=== PATIENT | female | born 1950 | race African-American/Black ===

== ENCOUNTER 2018-09-26 08:54 | Inpatient (IN) | payer MEDICARE ==
[~2018-09-26] VITALS: Ht 162.6 cm; Wt 66.7 kg
[2018-09-26 09:45] LABS: CLARITY URINE CLEAR (CLEAR); COLOR URINE YELLOW (YELLOW); KETONES URINE NEGATIVE (NEGATIVE); LEUKOCYTE ESTERASE URINE TRACE (NEGATIVE); NITRITE URINE NEGATIVE (NEGATIVE); OCCULT BLOOD URINE TRACE (NEGATIVE); PROTEIN URINE 2+ (NEGATIVE); SPECIFIC GRAVITY URINE 1.013 (1.005-1.030); UROBILINOGEN URINE 0.2 E.U./dL (0.2-1.0)
[2018-09-26 10:27] LABS: BASOPHILS % 0.8 % (0.0-2.0); EOSINOPHILS % 4.1 % (0.0-5.0); HEMATOCRIT. 36.8 % (36.0-48.0); HEMOGLOBIN. 12.8 g/dL (12.0-16.0); LYMPHOCYTES % 25.8 % (20.0-50.0); MEAN CORPUSCULAR HEMOGLOBIN 31.7 pg (28.0-32.0); MEAN CORPUSCULAR VOLUME 91.3 fL (81.0-99.0); MEAN PLATELET VOLUME 8.5 fl (7.4-10.4); MONOCYTES % 7.2 % (2.0-8.0); NEUTROPHILS % 62.1 % (40.0-76.0); PLATELET 269 x1000/uL (130-400); RED BLOOD CELL COUNT 4.03 mill/uL (4.2-5.4); RED CELL DISTRIBUTION WIDTH 13.7 % (11.6-14.6)
[2018-09-26 10:28] LABS: CHLORIDE 106 mEq/L (98-107)
[2018-09-26 10:32] LABS: INR 0.9; PROTHROMBIN TIME 9.5 sec (9.1-11.1)
[2018-09-26] MEDS ORDERED: MORPHINE SULFATE 4 MG/ML CPJ (NOT FOR IM USE) IV STA (11:45)
[2018-09-26] MEDS ORDERED: ONDANSETRON HCL 4MG/2ML INJ IV STA (11:45)
[2018-09-26] MEDS ORDERED: CEFTRIAXONE 1 G PREMIX 50 ML IV ONE (13:30)
[2018-09-26] MEDS ORDERED: DOCUSATE SODIUM 100MG CAPSULE PO PRN (16:30)
[2018-09-26] MEDS ORDERED: NA PHOS,M-B/NA PHOS,DI-BA ENEMA 118ML PR PRN (16:30)
[2018-09-26] MEDS ORDERED: HYDROCODONE/ACETAMINOPHEN 10/325MG TABLET PO PRN (16:30)
[2018-09-26] MEDS ORDERED: GUAIFENESIN 200MG/10ML SUGAR FREE UDC PO PRN (16:30)
[2018-09-26] MEDS ORDERED: DIPHENHYDRAMINE 50MG/ML VIAL IV PRN (16:30)
[2018-09-26] MEDS ORDERED: ACETAMINOPHEN 325MG TABLET PO PRN (16:30)
[2018-09-26] MEDS ORDERED: ACETAMINOPHEN 650MG/20.3ML UDC GT PRN (16:30)
[2018-09-26] MEDS ORDERED: IPRATROPIUM/ALBUTEROL 0.5-3(2.5)MG/3ML NEB INH PRN (16:30)
[2018-09-26] MEDS ORDERED: MAGNESIUM/ALUMINUM HYDROXIDE/SIMETHICONE 30ML UDC PO PRN (16:30)
[2018-09-26] MEDS ORDERED: ACETAMINOPHEN 650MG SUPP PR PRN (16:30)
[2018-09-26] MEDS: HYDROCODONE/ACETAMINOPHEN 5/325MG TABLET PO PRN (17:55)
[2018-09-26] MEDS ORDERED: DEXTROSE 50% WATER 50ML SYRINGE IV PRN (18:15)
[2018-09-26 20:30] VITALS: BP 165/62
[2018-09-26] MEDS: INSULIN LISPRO 100 UNITS/ML SUBCUT SCH (21:00)
[2018-09-26] MEDS: BLOOD SUGAR DIAGNOSTIC STRIP TEST SCH (21:15)
[2018-09-26] MEDS ORDERED: METF-414 MT (21:53)
[2018-09-26] MEDS ORDERED: LISI-604 MT (21:53)
[2018-09-26] MEDS ORDERED: ALBU6.7H9 INH (21:53)
[2018-09-26] MEDS: CLONIDINE 0.1MG TABLET PO PRN (22:08)
[2018-09-26] MEDS: SODIUM CHLORIDE 0.9% INJ 3ML FLUSH IVF SCH (22:11)
[2018-09-26 23:09] LABS: CLARITY URINE CLEAR (CLEAR); COLOR URINE YELLOW (YELLOW); KETONES URINE NEGATIVE (NEGATIVE); LEUKOCYTE ESTERASE URINE NEGATIVE (NEGATIVE); NITRITE URINE NEGATIVE (NEGATIVE); OCCULT BLOOD URINE NEGATIVE (NEGATIVE); PROTEIN URINE 2+ (NEGATIVE); SPECIFIC GRAVITY URINE 1.013 (1.005-1.030); UROBILINOGEN URINE 0.2 E.U./dL (0.2-1.0)
[2018-09-26 23:19] LABS: *AMPHETAMINES SCREEN URINE NEGATIVE (NEGATIVE); *BARBITURATES SCREEN URINE NEGATIVE (NEGATIVE); *BENZODIAZEPINES SCREEN URINE NEGATIVE (NEGATIVE); *COCAINE SCREEN URINE NEGATIVE (NEGATIVE); METHADONE URINE SCREEN NEGATIVE (NEGATIVE); OPIATES URINE SCREEN PRESUMTIVE POSITIVE (NEGATIVE)
[2018-09-26 23:20] LABS: CANNABINOID URINE SCREEN NEGATIVE (NEGATIVE); PHENCYCLIDINE URINE SCREEN NEGATIVE (NEGATIVE)
[2018-09-27] VITALS: BP 102/40
[2018-09-27] MEDS: PIPERACILLIN/TAZ 3.375G PREMIX 50 ML IV SCH ×2 (00:10→06:08)
[2018-09-27] MEDS: SODIUM CHLORIDE 0.45% 1,000 ML IV SCH ×3 (00:11→23:54)
[2018-09-27] MEDS: HYDROCODONE/ACETAMINOPHEN 5/325MG TABLET PO PRN ×2 (03:19→21:22)
[2018-09-27] MEDS: ONDANSETRON HCL 4MG/2ML INJ IV PRN ×2 (03:41→11:59)
[2018-09-27] MEDS: SODIUM CHLORIDE 0.9% INJ 3ML FLUSH IVF SCH ×3 (06:09→21:29)
[2018-09-27 06:21] LABS: BASOPHILS % 0.5 % (0.0-2.0); EOSINOPHILS % 4.4 % (0.0-5.0); HEMATOCRIT. 31.4 % (36.0-48.0); HEMOGLOBIN. 10.9 g/dL (12.0-16.0); LYMPHOCYTES % 36.6 % (20.0-50.0); MEAN CORPUSCULAR HEMOGLOBIN 31.8 pg (28.0-32.0); MEAN CORPUSCULAR VOLUME 91.7 fL (81.0-99.0); MEAN PLATELET VOLUME 8.7 fl (7.4-10.4); MONOCYTES % 9.4 % (2.0-8.0); NEUTROPHILS % 49.1 % (40.0-76.0); PLATELET 234 x1000/uL (130-400); RED BLOOD CELL COUNT 3.43 mill/uL (4.2-5.4); RED CELL DISTRIBUTION WIDTH 13.4 % (11.6-14.6)
[2018-09-27 06:45] LABS: CHLORIDE 106 mEq/L (98-107)
[2018-09-27 07:07] LABS: LDL CHOLESTEROL 192 mg/dL (5-100)
[2018-09-27 07:09] LABS: HDL CHOLESTEROL 26 mg/dL (40-59)
[2018-09-27] MEDS: BLOOD SUGAR DIAGNOSTIC STRIP TEST SCH ×4 (07:36→21:55)
[2018-09-27 08:00] VITALS: BP 139/51
[2018-09-27] MEDS: INSULIN LISPRO 100 UNITS/ML SUBCUT SCH ×4 (08:39→21:25)
[2018-09-27 12:00] VITALS: BP 174/61
[2018-09-27] MEDS: CLONIDINE 0.1MG TABLET PO PRN (12:00)
[2018-09-27] MEDS: PIPERACILLIN/TAZ 2.25G PREMIX 50 ML IV SCH ×2 (15:05→20:52)
[2018-09-27 16:00] VITALS: BP 129/58
[2018-09-27 20:00] VITALS: BP 129/48
[2018-09-27] MEDS ORDERED: ATORVASTATIN CALCIUM 10MG TABLET PO SCH (21:00)
[2018-09-27] MEDS: DEXAMETHASONE 4MG/ML 1ML VIAL IV SCH (23:53)
[2018-09-28] VITALS: BP 122/49
[2018-09-28] MEDS: ONDANSETRON HCL 4MG/2ML INJ IV PRN ×2 (00:13→06:24)
[2018-09-28] MEDS: PIPERACILLIN/TAZ 2.25G PREMIX 50 ML IV SCH ×2 (02:11→09:05)
[2018-09-28] MEDS: HYDROCODONE/ACETAMINOPHEN 5/325MG TABLET PO PRN (02:12)
[2018-09-28 04:00] VITALS: BP 151/56
[2018-09-28] MEDS: DEXAMETHASONE 4MG/ML 1ML VIAL IV SCH ×2 (06:24→11:32)
[2018-09-28] MEDS: BLOOD SUGAR DIAGNOSTIC STRIP TEST SCH ×2 (06:56→11:32)
[2018-09-28] MEDS: SODIUM CHLORIDE 0.9% INJ 3ML FLUSH IVF SCH ×2 (06:57→13:29)
[2018-09-28 08:00] VITALS: BP 150/61
[2018-09-28] MEDS: INSULIN LISPRO 100 UNITS/ML SUBCUT SCH ×2 (09:05→12:50)
[2018-09-28] MEDS: SODIUM CHLORIDE 0.45% 1,000 ML IV SCH (09:58)
[2018-09-28 12:00] VITALS: BP 137/57
[2018-09-28] MEDS ORDERED: TRAM50TA94 MT (12:08)
[2018-09-28] MEDS ORDERED: METH4TAB3 MT (12:08)
[2018-09-28] MEDS ORDERED: LEVO500T2 MT (12:15)
[2018-09-28 12:52] VITALS: BP 128/82
== END 2018-09-28 13:57 | disposition home or self-care (01) | DRG 444 ==
LOC: ER 12:58 → 6EST 13:12 → EDBEDREQ 13:17 → EDBEDREQTM 13:17 → ENRESERV 19:05 → EDBEDREQ 20:08
PROVIDERS: ADMIT Family Medicine; ATTEND Family Medicine
DX: K80.20 Calculus of gallbladder without cholecystitis without obstruction (principal); N17.0 Acute kidney failure with tubular necrosis; N39.0 Urinary tract infection, site not specified; M10.9 Gout, unspecified; E86.0 Dehydration; I10 Essential (primary) hypertension; M54.9 Dorsalgia, unspecified; E11.9 Type 2 diabetes mellitus without complications; F17.210 Nicotine dependence, cigarettes, uncomplicated; Z90.710 Acquired absence of both cervix and uterus; M48.061 Spinal stenosis, lumbar region without neurogenic claudication
CPT/HCPCS: 36415; 71045; 72131; 74176; 76700; 80061; 80305; 82962; 83036; 84484; 87106; 93005; 96365; 96375; 97162; 99285; J0696; J1100; J1815; J2270; J2405; J2543